=== PATIENT | male | born 1965 | race Caucasian/White ===

== ENCOUNTER → 2020-10-01 | Day surgery (SDC) | payer OTHER ==
[~2020-10-01] VITALS: Ht 177.8 cm; Wt 122.5 kg
[~2020-10-01] MED LIST: PERCOCET 5-3251 EACH PO
[2020-10-01 10:42] LABS: HCT 47.5 % (42.0-52.0); HGB 15.5 g/dl (13.2-18.0); MCH 29.2 pg (25.0-31.0); MCHC 32.6 g/dL (32.0-36.0); MCV 89.6 fL (78.0-100.0); MPV 10.6 fL (6.0-9.5); RBC 5.3 M/uL (4.70-6.00); RDW 12.4 % (11.5-14.0); WBC 7.9 K/uL (4.0-10.5)
[2020-10-01 11:03] LABS: ALBUMIN 3.9 g/dL (3.4-5.0); BILIRUBIN - TOTAL 0.6 mg/dL (0.2-1.0); BUN/CREAT RATIO (CALC) 17.3 RATIO; CREATININE 0.81 mg/dL (0.67-1.17); GLOBULIN (CALCULATION) 4.8 g/dL; TOTAL PROTEIN 8.7 g/dL (6.4-8.2)
== END | disposition home or self-care (01) ==
LOC: FAS 10:00
PROVIDERS: Orthopaedic Surgery
DX: S83.231A Complex tear of medial meniscus, current injury, right knee, initial encounter (principal); M17.11 Unilateral primary osteoarthritis, right knee; M25.861 Other specified joint disorders, right knee; M23.300 Other meniscus derangements, unspecified lateral meniscus, right knee; Z79.891 Long term (current) use of opiate analgesic; X58.XXXA Exposure to other specified factors, initial encounter
CPT/HCPCS: 36415; 71045; 80053; 97116; 97161; J2250; J2704; J3010; J7120

== ENCOUNTER 2021-01-03 12:02 | Emergency (ER) | payer OTHER | END 2021-01-03 15:35 | disposition home or self-care (01) | LOC: FER 12:02 | DX: S46.912A Strain of unspecified muscle, fascia and tendon at shoulder and upper arm level, left arm, initial encounter (principal); I10 Essential (primary) hypertension; X50.1XXA Overexertion from prolonged static or awkward postures, initial encounter; Y93.89 Activity, other specified | CPT/HCPCS: 73030; 96372; J1100; J1885 ==